=== PATIENT | male | born 1995 | race Hispanic/Latino ===

== ENCOUNTER 2023-01-07 06:45 | Inpatient (IN) | payer BC ==
[2023-01-07] MEDS ORDERED: Ondansetron PF 4 MG/2 ML Vial ONE (07:41)
[2023-01-07] MEDS ORDERED: Dicyclomine 20 MG/2 ML VIAL ONE (07:41)
[2023-01-07 08:34] LABS: #Lymphocytes 0.6 thou/uL (1.20-3.40); #Monocytes 0.3 thou/uL (0.11-0.59); #Neutrophils 11.6 thou/uL (1.40-6.50); %Eosinophils 0.2 % (0.0-10.0); %Lymphocytes 5.1 % (21.0-51.0); %Monocytes 2.4 % (0.0-10.0); %Neutrophils 92.3 % (42.0-75.0); Hemoglobin 12.8 g/dL (14.0-18.0); Mean Corpuscular HGB CONC 32.4 g/dL (32.0-36.0); Mean Corpuscular Hemoglobin 29.5 pg (27.0-31.0); Mean Platelet Volume 8.3 fL (7.4-10.4); Platelet Count 269 10x3/uL (130-400); RBC Distribution Width 11.5 % (11.5-14.5); Red Blood Cell (RBC) Count 4.35 mill/uL (4.70-6.10); White Blood Cell (WBC) Count 12.6 10x3/uL (4.8-10.8)
[2023-01-07 08:42] LABS: Bacteria/HPF None Seen HPF (None Seen); Bilirubin Negative (Negative); Blood, Urine 1+ (Negative); Clarity Clear (Clear); Glucose, Urine (Dipstick) Greater than 1000 mg/dL (Negative); Ketone, Urine 40 mg/dL (Negative); Leukocyte Negative Leu/uL (Negative); Nitrite Negative (Negative); Protein, Urine (Dipstick) 100 mg/dL (Neg-Trace); RBC/HPF 0-3 HPF (0-3); Specific Gravity, Urine 1.025 (1.002-1.036); Squamous Epithelial None Seen HPF (0-3); Urobilinogen Normal mg/dL (Less than 2); WBC/HPF 0-3 HPF (0-3); pH, Urine 5.5 (5.0-9.0)
[2023-01-07 08:52] LABS: ALT (SGPT) 35 U/L (8-55); AST (SGOT) 33 U/L (5-34); Albumin 4.6 g/dL (3.5-5.0); Alkaline Phosphatase 123 U/L (40-110); Anion Gap 25 mmol/L (10-20); BUN (Urea Nitrogen) 24 mg/dL (8.9-20.6); Bilirubin, Total 0.7 mg/dL (0.2-1.2); Calc. Creatinine Clearance 0 mL/min (70-130); Calcium 10.1 mg/dL (7.8-10.44); Carbon Dioxide 22 mmol/L (22-29); Chloride 95 mmol/L (98-107); Estimated GFR 83; Globulin 3.3 g/dL (2.4-3.5); Lipase 4 U/L (8-78); Magnesium 2.3 mg/dL (1.6-2.6); Protein, Total 7.9 g/dL (6.0-8.3); Sodium 137 mmol/L (136-145)
[2023-01-07 08:59] LABS: Glucose 456 mg/dL (70-105)
[2023-01-07] MEDS ORDERED: Dextrose 50% Abboject 50 ML SYRINGE SLOW IVP PRN ×2 (09:29→10:28)
[2023-01-07] MEDS ORDERED: NS 0.9% w/ 20 MEQ KCL 1,000 ML IV PRN ×2 (09:29)
[2023-01-07] MEDS ORDERED: Sodium Chloride 0.9% 1,000 ML IV PRN ×2 (09:29)
[2023-01-07] MEDS ORDERED: Electrolyte Replacement Protocol 1 EACH IVPB ONE (09:29)
[2023-01-07] MEDS ORDERED: Dextrose 5 %-0.45 % NaCl 1,000 ML IV PRN (09:29)
[2023-01-07] MEDS ORDERED: HUMULIN R 100 UNITS in Sodium Chloride 0.9% 100 ML IVPB SCH (09:30)
[2023-01-07] MEDS ORDERED: INSULIN REGULAR IN 0.9 % NACL 100 UNIT/100 ML BAG ONE (09:35)
[2023-01-07 09:44] LABS: SARS-CoV-2 NAA Rapid Test DETECTED (NotDetected)
[2023-01-07 09:45] LABS: Actual Bicarbonate (HCO3v) 22 mEq/L (22-28); Analyzer IN Cardio ER; Base Excess -3.5 mEq/L (-2.0 to +3.0); Calcium, Ionized (venous) 1.13 mmol/L (1.16-1.32); Chloride (VBG) 98 mmol/L (98-106); Hemoglobin (Hb) 12.8 g/dL (13.2-17.3); Potassium (VBG) 4.68 mmol/L (3.70-5.30); Sodium 136.4 mmol/L (133-146); pH (venous) 7.35 (7.32-7.43)
[2023-01-07] MEDS ORDERED: Dextrose 5% in Water 1,000 ML IV PRN (10:28)
[2023-01-07] MEDS ORDERED: Insulin Regular 300 UNITS/3 ML VIAL SC PRN (10:28)
[2023-01-07 12:28] LABS: Lactic Acid 3.7 mmol/L (0.5-2.2)
[2023-01-07 12:32] VITALS: BMI 24.9
[2023-01-07 12:45] LABS: Anion Gap 17 mmol/L (10-20); BUN (Urea Nitrogen) 23 mg/dL (8.9-20.6); Calc. Creatinine Clearance 95 mL/min (70-130); Calcium 9.5 mg/dL (7.8-10.44); Carbon Dioxide 26 mmol/L (22-29); Chloride 102 mmol/L (98-107); Estimated GFR 95; Glucose 172 mg/dL (70-105); Potassium 4.3 mmol/L (3.5-5.1); Sodium 141 mmol/L (136-145)
[2023-01-07] MEDS ORDERED: Electrolyte Replacement Protocol 1 EACH IVPB SCH (12:45)
[2023-01-07] MEDS: D5 1/2 NS w/20 mEq KCL 1,000 ML IV PRN ×2 (12:49→17:52)
[2023-01-07] MEDS ORDERED: Acetaminophen 325 MG TAB PO PRN (16:39)
[2023-01-07 17:53] LABS: Anion Gap 14 mmol/L (10-20); BUN (Urea Nitrogen) 21 mg/dL (8.9-20.6); Calc. Creatinine Clearance 106 mL/min (70-130); Calcium 9.2 mg/dL (7.8-10.44); Carbon Dioxide 26 mmol/L (22-29); Chloride 101 mmol/L (98-107); Estimated GFR 110; Glucose 99 mg/dL (70-105); Potassium 4.1 mmol/L (3.5-5.1); Sodium 137 mmol/L (136-145)
[2023-01-07] MEDS ORDERED: traMADol HCl 50 MG TAB PO PRN (20:48)
[2023-01-07] MEDS ORDERED: Insulin Glargine 30 UNITS/0.3 ML VIAL SC SCH (21:00)
[2023-01-08 08:09] LABS: Anion Gap 16 mmol/L (10-20); BUN (Urea Nitrogen) 19 mg/dL (8.9-20.6); Calc. Creatinine Clearance 134 mL/min (70-130); Carbon Dioxide 22 mmol/L (22-29); Chloride 98 mmol/L (98-107); Estimated GFR 126; Glucose 75 mg/dL (70-105); Potassium 4.2 mmol/L (3.5-5.1); Sodium 132 mmol/L (136-145)
[2023-01-08 08:54] VITALS: BP 150/61; TEMP 97.8
== END 2023-01-08 11:22 | disposition home or self-care (01) | DRG 637 ==
LOC: ERS 06:45 → IMCU/EMU 09:29 → T4-B 01-08 01:56
PROVIDERS: ADMIT Hospitalist; ATTEND Hospitalist
PROC: 8E0ZXY6 Isolation (ICD-10-PCS; principal; 2023-01-07)
DX: E10.10 Type 1 diabetes mellitus with ketoacidosis without coma (principal); U07.1 COVID-19; J12.82 Pneumonia due to coronavirus disease 2019; Z79.4 Long term (current) use of insulin; Z83.3 Family history of diabetes mellitus
CPT/HCPCS: 36415; 36416; 80048; 80053; 81003; 81015; 82010; 82805; 83605; 83690; 83735; 84100; 85025; 87040; 87077; 87086; 93005; 94760; J1815; J2405; J3480